=== PATIENT | female | born 1940 | race Caucasian/White ===

== ENCOUNTER → 2016-10-20 | Outpatient (CLI) | payer MEDICARE ==
[~2016-10-20] MED LIST: ASPI-515 PO; ASPI-621 PO; INSU100V10 SQ; [UNRECOGNIZED DRUG - REMARK] SC
[2016-10-20 16:09] LABS: BLOOD UREA NITROGEN 12 mg/dL (7-18)
[2016-10-20 16:13] LABS: ASPARTATE AMINO TRANSFERASE 25 U/L (15-37)
== END | disposition home or self-care (01) ==
LOC: STAR 14:40
PROVIDERS: ATTEND Orthopaedic Surgery Orthopaedic Surgery of the Spine
DX: Z01.811 Encounter for preprocedural respiratory examination (principal); M48.06 Spinal stenosis, lumbar region; J84.10 Pulmonary fibrosis, unspecified; J98.4 Other disorders of lung; M96.1 Postlaminectomy syndrome, not elsewhere classified
CPT/HCPCS: 36415; 71020; 80053; 81003; 85025; 87081; 93005

== ENCOUNTER → 2016-10-27 | Outpatient (CLI) | payer MEDICARE ==
[2016-10-21 07:34] VITALS: BP 145/76
[~2016-10-27] VITALS: Ht 157.5 cm; Wt 70.0 kg
[~2016-10-27] MED LIST changes: +BACITRACIN OINT 500U/GM, 15 GM ONE; +BUPIVACAINE/PF-EPI 0.25% 1:200K ONE; +BUPIVACAINE/PF-EPI 0.5% 1:200K ONE; +LACTATED RINGERS 1,000 ML IV SCH; +LIDOCAINE 1%, 2ML ONE; +LIDOCAINE 1%, 2ML SQ PRN; +THROMBIN 5,000 UNIT VIAL TP ONE
== END | disposition home or self-care (01) ==
LOC: OUT 09:13 → EDSTATUS 11:30 → OUT 12:38
PROVIDERS: ATTEND Orthopaedic Surgery Orthopaedic Surgery of the Spine
DX: Z01.812 Encounter for preprocedural laboratory examination (principal); M48.06 Spinal stenosis, lumbar region; M96.1 Postlaminectomy syndrome, not elsewhere classified; E11.9 Type 2 diabetes mellitus without complications
CPT/HCPCS: 36415; 82947; 82962; J3490

== ENCOUNTER 2017-10-31 16:07 | Emergency (ER) | payer MEDICARE ==
[~2017-10-31] VITALS: Ht 157.5 cm; Wt 70.8 kg
[~2017-10-31 16:07] MED LIST changes: -BACITRACIN OINT 500U/GM, 15 GM ONE; -BUPIVACAINE/PF-EPI 0.25% 1:200K ONE; -BUPIVACAINE/PF-EPI 0.5% 1:200K ONE; -INSU100V10 SQ; +INSU100V11 SQ; -LACTATED RINGERS 1,000 ML IV SCH; -LIDOCAINE 1%, 2ML ONE; -LIDOCAINE 1%, 2ML SQ PRN; -THROMBIN 5,000 UNIT VIAL TP ONE
[2017-10-31 17:13] LABS: BASOPHILS # (AUTO) 0.06 x10^3/uL (0-0.1); BASOPHILS % (AUTO) 1 % (0-1); EOSINOPHILS # (AUTO) 0.32 x10^3/uL (0-0.4); EOSINOPHILS % (AUTO) 4 % (1-7); LYMPHOCYTES # (AUTO) 3.06 x10^3/uL (1-3.4); LYMPHOCYTES % (AUTO) 35 % (22-44); MD NO; MEAN CORPUSCULAR HEMOGLOBIN 31.3 pg (27.0-34.8); MEAN CORPUSCULAR HGB CONC 33.5 g/dL (32.4-35.8); MEAN CORPUSCULAR VOLUME 93.4 fL (80-100); MEAN PLATELET VOLUME 7.6 fL (7.4-10.4); MONOCYTES # (AUTO) 0.69 x10^3/uL (0.2-0.8); MONOCYTES % (AUTO) 8 % (2-9); NEUTROPHILS # (AUTO) 4.53 x10^3/uL (1.8-6.8); NEUTROPHILS % (AUTO) 52 % (42-75); PLATELET COUNT 306 x10^3/uL (130-400); RED BLOOD COUNT 4.35 x10^6/uL (3.82-5.3); RED CELL DISTRIBUTION WIDTH 14.3 % (9.6-15.2)
[2017-10-31 17:30] LABS: ALANINE AMINOTRANSFERASE 22 U/L (12-78); ANION GAP 9 mmol/L (5-15); CALCIUM 8.3 mg/dL (8.5-10.1); CHLORIDE 110 mmol/L (98-107); CREATININE 1.17 mg/dL (0.55-1.02)
[2017-10-31] MEDS ORDERED: SODIUM CHLORIDE FLUSH 10ML SYR IVF ONE ×2 (17:30)
[2017-10-31] MEDS ORDERED: ALBUTEROL/IPRATROPIUM 2.5MG/0.5MG, 3 ML NPPB ONE (17:30)
[2017-10-31 17:34] LABS: ALKALINE PHOSPHATASE 106 U/L (45-117); BILIRUBIN,TOTAL 0.5 mg/dL (0.2-1.0); TOTAL PROTEIN 7.5 g/dL (6.4-8.2); TROPONIN I < 0.015 ng/mL (0.000-0.045)
[2017-10-31] MEDS ORDERED: ALBUTEROL/IPRATROPIUM 2.5MG/0.5MG, 3 ML ONE (17:36)
[2017-10-31 18:56] VITALS: BP 154/76
== END 2017-10-31 20:10 | disposition home or self-care (01) ==
LOC: ED 19:50
DX: C50.912 Malignant neoplasm of unspecified site of left female breast (principal); E11.9 Type 2 diabetes mellitus without complications; Z86.73 Personal history of transient ischemic attack (TIA), and cerebral infarction without residual deficits; Z87.891 Personal history of nicotine dependence
CPT/HCPCS: 36415; 71046; 76642; 80053; 83605; 83880; 84145; 84484; 85025; 87040; 93005; 99285; J7512

== ENCOUNTER 2017-11-12 12:57 | Emergency (ER) | payer MEDICARE ==
[~2017-11-12] VITALS: Ht 157.5 cm; Wt 69.9 kg
[2017-11-12] MEDS ORDERED: KETOROLAC 60 MG/2 ML IM ONE (14:30)
[2017-11-12 16:23] VITALS: BP 158/66
== END 2017-11-12 16:38 | disposition home or self-care (01) ==
LOC: ED 14:12
DX: M54.16 Radiculopathy, lumbar region (principal); R26.2 Difficulty in walking, not elsewhere classified; E11.65 Type 2 diabetes mellitus with hyperglycemia; J44.9 Chronic obstructive pulmonary disease, unspecified; G89.29 Other chronic pain; Z86.73 Personal history of transient ischemic attack (TIA), and cerebral infarction without residual deficits; Z87.891 Personal history of nicotine dependence; Z79.4 Long term (current) use of insulin
CPT/HCPCS: 72131; 93971; 96372; 99284; J1885

== ENCOUNTER → 2017-11-17 | Outpatient (CLI) | payer MEDICARE | END | disposition home or self-care (01) | LOC: CFH 07:47 | PROVIDERS: ATTEND Surgery | DX: C50.812 Malignant neoplasm of overlapping sites of left female breast (principal); N63.20 Unspecified lump in the left breast, unspecified quadrant; R92.8 Other abnormal and inconclusive findings on diagnostic imaging of breast | CPT/HCPCS: 76642; 77066 ==

== ENCOUNTER → 2017-11-20 | Outpatient (CLI) | payer MEDICARE ==
[~2017-11-20] MED LIST changes: +AMLO2.5T PO; +CEFD300C37 PO; +INSU100I11 SQ-INSULIN; +LEVO50TA PO; +LIDOCAINE 1%, 10ML ONE; +ONDA4TAB13 PO; +TRAM50TA2 PO
== END | disposition home or self-care (01) ==
LOC: CFH 07:27
PROVIDERS: ATTEND Surgery
DX: C50.912 Malignant neoplasm of unspecified site of left female breast (principal); R59.9 Enlarged lymph nodes, unspecified
CPT/HCPCS: 19083; 38505; 76942; 88305; J3490